=== PATIENT | male | born 1965 | race Caucasian/White ===

== ENCOUNTER 2017-07-31 09:12 | Emergency (ER) | payer MEDICAID, OTHER ==
[~2017-07-31] VITALS: Ht 175.3 cm; Wt 77.1 kg
[2017-07-31 09:19] VITALS: BP 105/62
--- NOTE | 2017-07-31 09:19 | NUR ---
BIBA TO ER BED 5
--- NOTE | 2017-07-31 09:25 | NUR ---
Kin up in [facility] - 07/31/17 at 0948 by [facility] BIBA TO ER BED 5
--- NOTE | 2017-07-31 09:35 | NUR ---
PT TAKEN TO XR VIA ANTIONETTE BY [employer].
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
--- NOTE | 2017-07-31 09:49 | NUR ---
LAB AT BEDSIDE.
[2017-07-31] MEDS ORDERED: KETOROLAC 30 MG/ML VIAL IVP ONE (10:30)
[2017-07-31] MEDS ORDERED: NACL 0.9% 1,000 ML IV ONE (10:35)
[2017-07-31 11:11] LABS: BASOPHILS # (AUTO) 0.1 K/uL (0.00-0.22); BASOPHILS % (AUTO) 2.4 % (0.0-2.0); EOSINOPHILS # (AUTO) 0.1 K/uL (0-0.4); HEMATOCRIT 35.5 % (36-52); HEMOGLOBIN 11.4 g/dL (12.0-18.0); LYMPHOCYTES # (AUTO) 1.6 K/uL (2.0-11.5); LYMPHOCYTES % (AUTO) 41.6 % (20.5-51.1); MEAN CORPUSCULAR HEMOGLOBIN 28 pg (27-31); MEAN CORPUSCULAR HGB CONC 32 g/dL (33-37); MEAN CORPUSCULAR VOLUME 87 fL (80-94); MONOCYTES # (AUTO) 0.3 K/uL (0.8-1.0); NEUTROPHILS # (AUTO) 1.7 K/uL (1.8-7.7); PLATELET COUNT (AUTO) 266 K/uL (140-450); RED BLOOD CELL COUNT(AUTO) 4.09 MIL/uL (4.20-6.10); WHITE BLOOD COUNT (AUTO) 3.8 K/uL (4.8-10.8)
--- NOTE | 2017-07-31 11:11 | NUR ---
20G TO LAC VIA ULTRASOUND. BLOOD DRAWN AND SENT. PT ALBINO WELL. PAIN MED GIVEN PER JAN.
[2017-07-31 11:18] LABS: ANION GAP 9.9 (8-16); CARBON DIOXIDE 30.3 mmol/L (21-32); CREATININE 0.8 mg/dL (0.7-1.3); POTASSIUM 3.2 mmol/L (3.5-5.1)
[2017-07-31 11:26] LABS: ALBUMIN 3.4 g/dL (3.4-5.0); TOTAL BILIRUBIN 0.3 mg/dL (0.0-1.0)
[2017-07-31 11:28] LABS: PROTHROMBIN TIME 9.4 secs (10.8-13.4)
[2017-07-31] MEDS ORDERED: POTASSIUM CHLORIDE 10 MEQ TABER PO ONE (11:55)
--- NOTE | 2017-07-31 12:00 | NUR ---
URINE COLLECTED VIA VOID.
[2017-07-31 12:01] LABS: APPEARANCE,URINE HAZY (CLEAR); BILIRUBIN,URINE NEGATIVE (NEGATIVE); BLOOD, URINE NEGATIVE (NEGATIVE); LEUKOCYTE ESTERASE ,URINE NEGATIVE (NEGATIVE); NITRITE, URINE NEGATIVE (NEGATIVE); UGLUCOSE NEGATIVE (NEGATIVE)
[2017-07-31 12:08] LABS: COLOR,URINE YELLOW (YELLOW)
[2017-07-31 13:30] VITALS: BP 107/66
== END 2017-07-31 13:30 | disposition home or self-care (01) ==
LOC: MED 09:12
DX: S22.41XA Multiple fractures of ribs, right side, initial encounter for closed fracture (principal); F10.129 Alcohol abuse with intoxication, unspecified; Z88.0 Allergy status to penicillin; X58.XXXA Exposure to other specified factors, initial encounter; Y93.89 Activity, other specified; Y92.89 Other specified places as the place of occurrence of the external cause; Y99.8 Other external cause status
CPT/HCPCS: 36415; 71101; 80053; 81003; 85025; 85610; 85730; 93005; 96361; 96374; 99285; G0482; J1885; J7030

== ENCOUNTER 2017-08-11 13:49 | Emergency (ER) | payer MEDICAID ==
[~2017-08-11] VITALS: Ht 175.3 cm; Wt 77.1 kg
[2017-08-11 13:53] VITALS: BP 136/76
[2017-08-11 14:38] LABS: BASOPHILS # (AUTO) 0.1 K/uL (0.00-0.22); BASOPHILS % (AUTO) 1.3 % (0.0-2.0); EOSINOPHILS % (AUTO) 0.9 % (0.0-4.0); HEMATOCRIT 35.1 % (36-52); HEMOGLOBIN 11.3 g/dL (12.0-18.0); LYMPHOCYTES # (AUTO) 1.2 K/uL (2.0-11.5); LYMPHOCYTES % (AUTO) 22.7 % (20.5-51.1); MEAN CORPUSCULAR HEMOGLOBIN 27 pg (27-31); MEAN CORPUSCULAR HGB CONC 32 g/dL (33-37); MEAN CORPUSCULAR VOLUME 84 fL (80-94); MONOCYTES # (AUTO) 0.4 K/uL (0.8-1.0); MONOCYTES % (AUTO) 7.4 % (1.7-9.3); NEUTROPHILS # (AUTO) 3.5 K/uL (1.8-7.7); NEUTROPHILS % (AUTO) 67.7 % (42.2-75.2); PLATELET COUNT (AUTO) 153 K/uL (140-450); RED BLOOD CELL COUNT(AUTO) 4.19 MIL/uL (4.20-6.10); RED CELL DISTRIBUTION WIDTH 16.5 % (11.6-13.7); WHITE BLOOD COUNT (AUTO) 5.2 K/uL (4.8-10.8)
[2017-08-11 14:40] LABS: ANION GAP 14.7 (8-16); CARBON DIOXIDE 24.8 mmol/L (21-32); CREATININE 0.8 mg/dL (0.7-1.3); POTASSIUM 3.5 mmol/L (3.5-5.1)
[2017-08-11 14:44] LABS: PROTHROMBIN TIME 10.4 secs (10.8-13.4)
[2017-08-11 14:46] LABS: ALBUMIN 3.4 g/dL (3.4-5.0); TOTAL BILIRUBIN 0.7 mg/dL (0.0-1.0)
[2017-08-11] MEDS ORDERED: KETOROLAC 60 MG/2 ML VIAL IM ONE (16:00)
--- NOTE | 2017-08-11 16:00 | NUR ---
PT PRESENTS TO ER W/C/O CHEST PAIN X3 DAYS.PT STATES HE VOMITTED EVEVRYDAY. SKIN IS PINK/WARM/DRY; AAOX4 WITH EVEN AND STEADY GAIT; LUNGS CLEAR BL; HR EVEN AND REGULAR; PT DENIES ANY FEVER OR COUGH AT THIS TIME; PATIENT STATES PAIN OF 10/10 AT THIS TIME; VSS; PATIENT POSITIONED FOR COMFORT; HOB ELEVATED; BEDRAILS UP X2; BED DOWN. ALL MONITORS IN PLACED;ER MD MADE AWARE OF PT STATUS.
[2017-08-11 16:40] VITALS: BP 147/68
== END 2017-08-11 16:40 | disposition home or self-care (01) ==
LOC: MED 13:49
DX: S22.31XA Fracture of one rib, right side, initial encounter for closed fracture (principal); R07.89 Other chest pain; R03.0 Elevated blood-pressure reading, without diagnosis of hypertension; Z88.0 Allergy status to penicillin; Y04.2XXA Assault by strike against or bumped into by another person, initial encounter; Y93.89 Activity, other specified; Y92.89 Other specified places as the place of occurrence of the external cause; Y99.8 Other external cause status
CPT/HCPCS: 36415; 71010; 80053; 83880; 84484; 85025; 85610; 85730; 93005; 96372; 99285; J1885

== ENCOUNTER 2017-08-11 21:22 | Emergency (ER) | payer MEDICAID ==
[~2017-08-11] VITALS: Ht 175.3 cm; Wt 77.1 kg
[2017-08-11 21:34] VITALS: BP 148/71
--- NOTE | 2017-08-11 21:45 | NUR ---
PT TAKEN TO XRAY FROM THE LOBBY
--- NOTE | 2017-08-11 22:26 | NUR ---
PT TAKEN TO BED 5
--- NOTE | 2017-08-11 23:05 | NUR ---
Dr. Jimenes evaluating patient at bedside.
[2017-08-11 23:26] VITALS: BP 132/69
--- NOTE | 2017-08-11 23:27 | NUR ---
Patient discharged with v/s stable. Written and verbal after care instructions given and explained. Patient alert, oriented and verbalized understanding of instructions. Ambulatory with steady gait. All questions addressed prior to discharge. ID band removed. Patient advised to follow up with PMD.NO Rx given. Patient educated on indication of medication including possible reaction and side effects. Opportunity to ask questions provided and answered. PT REFUSED TO SIGN ANY DISCHGER INFO/PAPPER WORK AND PT STS "IM NOPT HOMELESS AND I WILL NOT SIGN ANY HOMLESS PAPPER WORK."
== END 2017-08-11 23:27 | disposition home or self-care (01) ==
LOC: MED 21:22
DX: R07.89 Other chest pain (principal); F10.129 Alcohol abuse with intoxication, unspecified; Z88.0 Allergy status to penicillin
CPT/HCPCS: 71010; 99283